=== PATIENT | male | born 1990 | race Caucasian/White ===

== ENCOUNTER 2024-06-18 14:24 | Emergency (ER) | payer MEDICARE, SELFPAY ==
--- NOTE | ~2024-06-18 | CT_ITS ---
CLINICAL HISTORY: head injury CT Head Without Contrast: Comparison: None Findings: Cortical sulci are symmetric Basal ganglia are unremarkable No shift in midline structures No intraparenchymal bleeding or abnormal extra axial blood fluid collections Normal pituitary size Clear paranasal sinuses Unremarkable orbital structures No depressed fractures Impression: Unremarkable CT of the head, no signs of acute trauma This document has been electronically signed by: Jose Aburto MD on 06/18/2024 15:58:50
[2024-06-18 14:30] VITALS: BP 157/87; PULSE 88; O2SAT 98
[2024-06-18 14:32] VITALS: BP 120/78; PULSE 89; RESP 16; TEMP 36.4; O2SAT 98; BMI 40.3
[2024-06-18] MEDS: Acetaminophen 325 MG TABLET 975 MG PO (14:49)
[2024-06-18] MEDS: Nicotine Polacrilex 2 MG GUM BUCCAL (15:09)
--- NOTE | 2024-06-18 15:10 | PC.NURSE ---
patient coming from [facility] for episode of agitation and hitting head against wall. ct scan completed, medicated per the MAR. patient requesting to go outside and smoke a cigarette, offered nicorette gum instead to which patient agrees to take. patient observer at bedside for patient safety.
--- NOTE | 2024-06-18 15:25 | ED_ITS ---
HPI - General Adult General Chief complaint: Head Injury Stated complaint: from [facility], is thirsty, hit head on wall Time Seen by Provider: 06/18/24 14:26 Source: patient, RN notes reviewed and old records reviewed Mode of arrival: EMS Limitations: no limitations History of Present Illness ED Provider: Kev HPI narrative: 33-year-old male presents for evaluation from [facility]. It is unclear why he is at [facility] as the patient reports he does not know. He reportedly got upset because they would not give me anything to drink and they would not give me my meds. he reports he smashed the back of his head against the wall because he was upset. He would not lose consciousness. He denies any neck pain but was placed in a C-collar. He does complain of a mild headache he has no other complaints or concerns at this time other than I am thirsty. Related Data Allergies Allergy/AdvReac Type Severity Reaction Status Date / Time acetaminophen [From Vicodin] Allergy Unknown Verified 06/18/24 14:37 hydrocodone [From Vicodin] Allergy Unknown Verified 06/18/24 14:37 Review of Systems Constitutional: Constitutional: Denies body ache(s), Denies chills, Denies fever(s) and Reports headache(s) Eyes: Eyes: Denies blurry vision, Denies exophthalmos and Denies floaters ENT: Denies vertigo, Denies dizziness and Reports headache(s) Cardiovascular: Cardiovascular: Denies chest pain and Denies chest pain at rest Respiratory: Respiratory: Denies cough Gastrointestinal: Gastrointestinal: Denies abdominal pain, Denies nausea and Denies vomiting Musculoskeletal: Musculoskeletal: Denies back pain, Denies arthralgias, Denies joint swelling and Denies limited range of motion Integumentary/Breasts: Skin/Breast: Denies rash Neurologic: Denies vertigo, Denies dizziness and Reports headache(s) PMFSH Social History Social History Advance Directives: No Advance Directives Information Provided: No Do you have a plan to hurt others: No Plan Physical Exam ED Vital Signs: Vital Signs - 24 hr 06/18/24 14:32 Temperature 97.6 F Pulse Rate 89 Respiratory Rate 16 Blood Pressure 120/78 Pulse Oximetry 98 Oxygen Delivery Method Room Air BMI result Body Mass Index 40.3 Const General: healthy appearing, comfortable, no acute distress, alert and awake Nutritional Appearance: well nourished [facility] Throat: Yes posterior oropharynx normal Eyes Eyelids: Yes eyelids normal Conjunctivae: conjunctivae normal Sclerae: sclerae normal Corneas: corneas normal Pupils: Equal, round and reactive pupils present EOM: EOMs intact bilaterally Neck Neck: Yes full ROM Resp Effort & Inspection: normal respiratory effort, able to speak in complete sentences and not labored Cardio Rate: regular rate Rhythm: regular rhythm GI Inspection: No distended Palpation (GI): Soft to palpation, not firm, nontender, no guarding and not rigid Back/Spine/Pelvis Cervical Spine: collar present and No Cervical spine tenderness Skin General skin exam: elasticity normal Neuro Cranial nerves: Yes CN's II-XII intact bilaterally, Yes Equal, round and reactive pupils present and Yes Bilaterally intact EOM present Cognition (Neuro): normal cognition Extrem Other: Moving all extremities well without any obvious deformities Medications Administered Generic Name Dose Route Start Last Admin Trade Name Freq PRN Reason Stop Dose Admin Nicotine Polacrilex 2 mg 06/18/24 14:54 06/18/24 15:09 Nicotine Polacrilex 2 Mg Gum BUCCAL 2 mg Q1H PRN Administration Nicotine Cravings Discontinued Medications Generic Name Dose Route Start Last Admin Trade Name Freq PRN Reason Stop Dose Admin Acetaminophen 975 mg 06/18/24 14:38 06/18/24 14:49 Acetaminophen 325 Mg Tablet PO 06/18/24 14:39 975 mg ONCE ONE Administration Medical Decision Making Medical Decision Making [facility] Narrative: 33-year-old male presenting for evaluation of a head injury. He is presenting from [facility] after striking the back of his head against a wall intentionally because he was upset. He has a bizarre affect but no focal neurologic deficits. Cervical spine was cleared with nexus criteria. I ordered a CT scan of the brain due to the patient's bizarre affect, however this could be his baseline. He was given Tylenol for his headache. he does have mild tenderness to the thoracic paraspinous region. No step-offs or deformities. Differential Diagnosis Differential Diagnoses: The differential diagnosis associated with the presentation includes Discharge Plan Discharge Clinical Impression: Closed head injury Patient Disposition: Xfer [facility] Transfer Details: [facility] Instructions: Head Injury (ED) Additional Instructions: Your CT scan did not show any significant injury. Use Tylenol as needed for pain follow-up with your primary doctor, return for new or worsening symptoms Print Language: Chinese
--- OUTSIDE RECORDS SUMMARY | 2024-06-18 15:31 | XMS_ITS | Clinical Summary ---
Author Organization [facility] Address [address] [place] [address] Care Team Providers Care Trades Helper Name Role Phone Damon Russo MD Primary Care Provider [phone] Immunizations Name Administration Dates Next Due DT (pediatric) 06/18/1994 DTaP 06/18/1994,07/21/1993,04/15/1993 ,02/11/1993 HIB (PRP-T) 04/09/1994,07/21/1993,02/11/1993 Hep B (pedi) 02/04/1994,01/24/1993,1992 IPV 06/18/1994,07/21/1993,04/15/1993 ,02/11/1993 MMR 04/09/1994 Social History Tobacco Use Types Packs/Day Years Used Date Smoking Tobacco: Never Assessed Sex and Gender Information Value Date Recorded Sex Assigned at Not on file Legal Sex Male 1:37 AM EDT Gender Identity Not on file Sexual Orientation Not on file Plan of Treatment Health Maintenance Due Date Last Done Comments Hepatitis C Screening 1992 DTaP/Tdap/Td (5 - Tdap) 12/21/2003 06/18/18 95, 07/21/1993, 04/15/1993, Additional history exists COVID-19 Vaccine (2023- season) 2023 Influenza (#1) 2023 Zoster (Shingrix) (1 of 2) 2042 Hep B Completed 02/04/1994, 01/08, 1992 Hib Completed 04/09/1994, 07/09, 02/11/1993 HPV Vaccine Aged Out No longer eligi ble based on patient's age to complete this topic Hep A Aged Out No longer eligi ble based on patient's age to complete this topic Meningococcal ACWY Aged Out No longer eligible based on patient's age to complete this topic Pneumococcal Aged Out No longer eligi ble based on patient's age to complete this topic Care Teams Trades Helper Relationship Specialty Start Date End Date Damon Russo MD [address] [place] [address] PCP - General 05/06/05
--- OUTSIDE RECORDS SUMMARY | 2024-06-18 15:31 | XMS_ITS | Data Portability ---
Author Organization [facility] [place] [address] [place] [address] Care Team Providers Care Computer Operations Manager Name Role Phone CATERINA RIOS Primary Care Provider CATERINA RIOS Referring Provider [phone] DAISY TALLEY Primary Care Provider [phone] Assessment No assessment recorded. Plan of Treatment Reminders Order Date Submit Date Provider Last Modified By Organization Details Last Modified Time Details Appointments None recorded. Lab rapid flu (A+B) 2022 023 [id number] In-Office Order, Internal Use Only DO Not Attach Compendium DO Not Attach Compendium, Do Not Delete/merge, [id number] 16:32:56 SARS CoV 2 RNA (COVID-19 ), QL, circulation librarian-PCR, respirato ry specimen 2022 023 [facility], [address] [place], [address], 3 08:17:55 SARS CoV 2 RNA (COVID-19 ), QL, circulation librarian-PCR, respirato ry specimen 2021 022 [facility], [address] [place], [address], 2 09:08:44 rapid flu (A+B) 2019 020 lourdes Gonzalez [facility], [address] [place], [address], 0 18:18:01 Referral None recorded. Procedures None recorded. Surgeries None recorded. Imaging XR, chest, 2 view 2021 022 [facility] ([facility]), [address] [place], [address], 2 10:32:28 Medication Orders Zofran 4 mg tablet 2019 020 INTERFACE [facility], [address] [place] [address], [address], 0 18:24:10 sulfameth oxazole 800 mg-trimet hoprim 160 mg tablet 2019 020 INTERFACE [facility], [address] [place] [address], [address], 0 10:52:57 mupirocin 2 % topical ointment 2019 020 INTERFACE [facility], [address] [place] [address], [address], 0 10:52:59 Patient TargetsNo targets recorded. Patient Instructions Encounter Date Encounter Id Patient Instructions Last Modified By Organization Details Last Modified Time 04/07/2019 [id number] sore throat: care instructions lourdes Not available 04/07/2019 18:18:01 Reason for Referral None Reported. Results Created Date Observation Date Name Description Value Unit Range Abnormal Flag Note LastModifiedBy Organization Detail LastModifiedTime 04/07/19 20 04/07/2019 rapid flu (A+B) Flu Type A negati ve Not Available [address] [place], [address], 04/07/2019 17:42:42 04/07/19 20 04/07/2019 rapid flu (A+B) Flu Type B negati ve Not Available [address] [place], [address], 04/07/2019 17:42:42 04/07/19 20 04/07/2019 rapid flu (A+B) Internal Control Valid Not Available Lisa [facility] [address] [place], [address], 04/07/2019 17:42:42 04/07/19 20 04/07/2019 rapid flu (A+B) Lot # [id number] Not Available [address] [place], [address], 04/07/2019 17:42:42 04/07/19 20 04/07/2019 rapid flu (A+B) Exp. Date 2021 Not Available [facility] [address] [place], [address], 04/07/2019 17:42:42 01/09/20 22 01/09/2022 SARS- COV-2 (NAAT ) sars-cov-2 NOT DETECT ED not detect . The Aptim a SARS- CoV-2 assay is a nucle ic acid ampli ficat ion in vitro diagn ostic test inten ded for the quali tativ e detec tion of RNA from SARS- CoV-2 using Trans cript ion Media italia Ampli ficat ion (TMA) isola italia and purif ied from nasop haryn geal (ACCOUNTING OFFICE MANAGER), nasal , mid-t urbin ate, and oroph aryng eal (OP) swab speci mens obtai deandra from indiv idual s meeti ng COVID -19 clini meka and/o r epide miolo gical crite renetta. The Aptim a TMA metho d is equiv alent in sensi tivit y and speci ficit y to metho ds utili zing PCR and RT-PC R. Resul ts are for the ident ifica tion of SARS- CoV-2 RNA which is gener ally detec table in upper respi rator y sampl es durin g the acute phase of infec tion. Posit kasia resul ts are indic ative of the prese nce of SARS- CoV-2 RNA; clini meka corre latio n with patie nt histo ry and other diagn ostic infor matio n is neces steven to deter mine patie nt infec tion statu s. Posit kasia resul ts do not rule out bacte rial infec tion or co-in fecti on with other virus es. Negat kasia resul ts do not precl ude SARS- CoV-2 infec tion and shoul d not be used as the sole basis for patie nt manag ement decis ions. Negat kasia resul ts must be combi deandra with clini meka obser vatio ns, patie nt histo ry, and epide miolo gical infor matio n. The Aptim a SARS- CoV-2 assay is only for use under the Food and Drug Admin istra tion' s Emerg ency Use Autho rizat ion (EUA) . Not Available [facility] [address] [place] [address], [id number] 01/09/2022 09:08:43 02/10/19 23 02/11/2022 SARS- COV-2 (NAAT ) sars-cov-2 NOT DETECT ED not detect . The Aptim a SARS- CoV-2 assay is a nucle ic acid ampli ficat ion in vitro diagn ostic test inten ded for the quali tativ e detec tion of RNA from SARS- CoV-2 using Trans cript ion Media it[place] Ampli ficat ion (TMA) isola italia and purif ied from nasop haryn geal (ACCOUNTING OFFICE MANAGER), nasal , mid-t urbin ate, and oroph aryng eal (OP) swab speci mens obtai deandra from indiv idual s meeti ng COVID -19 clini meka and/o r epide miolo gical crite renetta. The Aptim a TMA metho d is equiv alent in sensi tivit y and speci ficit y to metho ds utili zing PCR and RT-PC R. Resul ts are for the ident ifica tion of SARS- CoV-2 RNA which is gener ally detec table in upper respi rator y sampl es durin g the acute phase of infec tion. Posit kasia resul ts are indic ative of the prese nce of SARS- CoV-2 RNA; clini meka corre latio n with patie nt histo ry and other diagn ostic infor matio n is neces steven to deter mine patie nt infec tion statu s. Posit kasai resul ts do not rule out bacte rial infec tion or co-in fecti on with other virus es. Negat kasia resul ts do not precl ude SARS- CoV-2 infec tion and shoul d not be used as the sole basis for patie nt manag ement decis ions. Negat kasia resul ts must be combi deandra with clini meka obser vatio ns, patie nt histo ry, and epide miolo gical infor matio n. The Aptim a SARS- CoV-2 assay is only for use under the Food and Drug Admin istra tion' s Emerg ency Use Autho rizat ion (EUA) . Not Available [facility] [address] [place], [address] 02/11/2022 08:17:55 02/10/19 23 02/10/2022 rapid flu (A+B) Flu Type A negati ve Not Available In-Office Order Internal Use Only DO Not Attach Compendium DO Not Attach Compendium, Do Not Delete/merge, [id number] 02/10/2022 16:16:21 02/10/19 23 02/10/2022 rapid flu (A+B) Flu Type B negati ve Not Available In-Office Order Internal Use Only DO Not Attach Compendium DO Not Attach Compendium, Do Not Delete/merge, [id number] 02/10/2022 16:16:21 01/09/20 22 01/08/2022 XR, chest , 2 view [facility] [address] [place] [address] XRay Report Signed Perico t: Refugio Coles MR#: [id number] : 1990 Acct:H [id number] Age/Se x: 31 / M ADM Date: Loc: [facility] RA Attend ing Dr: Emily calixto PA-C Orderi ng Physic elham: Emily calixto Date of Servic e: Proced ure(s) : XR chest 2V Access ion Number (s): [id number] cc: Skyler Ibarra EXAM: XR chest 2V CLINIC AL INDICA TION: COUGH ADDITI ONAL PERTIN ENT CLINIC AL INFORM ATION FINDIN GS: CARLOS and naya andre compar tiffanie with: 010 Lung volume s: normal Lungs are clear. The heart, medias tinum, and bony struct ures appear unrema rkable . The visual ized bowel gas patter n below the diaphr agm is unrema rkable . Electr onical ly Signed in Henry cribe By Bhumika Balderas MD, MD 031 XR/XR chest 2V IMPRES KIAN: No acute findin gs. Dictat ed By: Bhumika Balderas Signed By: 1027 DD/DT: 900 TD/TT: 900 Transc riptio nist: [facility] [email or web address] [facility] [address] [place] [address], [id number], 01/08/2022 13:00:30 Result Notes None recorded. Problems Name Problem SNOMED Code Status Onset Date Resolution Date Notes Provider Name and Address Organization Details Recorded Time Glaucoma 99000951 Active Lavon suh [facility] 6 09:33:33 Injury of ankle 414163855 Active HAMMAD Chen [facility] 6 09:57:04 Problem Notes None recorded. Procedures Surgical History None recorded. Imaging Results Imaging Date Name Status LastModified by Organiz ation Details LastModified Time 01/08/2022 XR, chest, 2 view completed [email or web address] [facility] [address] [place] [address], [address], 01/08/2022 13:00:30 Procedure Notes None recorded. Medical Equipment None Reported. Allergies No known drug allergies Medications Name Sig Start Date Stop Date Status Note LastModified by Organization Details LastModified Time gabapentin 600 mg tablet active Not Available Not Available No t Available methylphenidat e 10 mg tablet active Not Available Not Availab le Not Available risperidone 4 mg tablet active Not Available Not Available No t Available methylphenidat e 20 mg tablet active Not Available Not Availab le Not Available ondansetron HCl 4 mg tablet Take 2 tablets twice a day by oral route for 3 days. active Not Available Not Available No t Available gabapentin 400 mg capsule active Not Available Not Available N ot Available olanzapine 5 mg tablet active Not Available Not Available No t Available clonazepam 1 mg tablet Take 1 tablet 3 times a day by oral route. active Not Available Not Available No t Available olanzapine 10 mg tablet active Not Available Not Available No t Available divalproex 500 mg tablet,delayed release active Not Available Not Available Not Available sulfamethoxazo le 800 mg-trimethopri m 160 mg tablet Take 1 tablet every 12 hours by oral route for 7 days. active Not Available Not Available No t Available risperidone 3 mg tablet active Not Available Not Available No t Available bupropion HCl SR 100 mg tablet,12 hr sustained-rele ase active Not Available Not Available Not Available risperidone 2 mg tablet active Not Available Not Available No t Available dextroamphetam ine-amphetamin e ER 20 mg 24hr capsule,extend release active Not Available Not Available Not Available trazodone 100 mg tablet active Not Available Not Available No t Available trazodone 150 mg tablet active Not Available Not Available No t Available haloperidol 10 mg tablet active Not Available Not Available No t Available benztropine 1 mg tablet active Not Available Not Available No t Available diclofenac sodium 75 mg tablet,delayed release active Not Available Not Available Not Available mupirocin 2 % topical ointment APPLY A SMALL AMOUNT TO THE AFFECTED AREA BY TOPICAL ROUTE 3 TIMES PER DAY active Not Available Not Available No t Available lorazepam 1 mg tablet active Not Available Not Available Not Available ibuprofen 600 mg tablet active Not Available Not Available No t Available dextroamphetam ine-amphetamin e ER 30 mg 24hr capsule,extend release active Not Available Not Available Not Available fluoxetine 20 mg capsule active Not Available Not Available N ot Available risperidone 1 mg tablet active Not Available Not Available No t Available Boostrix Tdap 2.5 Lf unit-8 mcg-5 Lf/0.5 mL intramuscular syringe active Not Available Not Available Not Available Cogentin active Not Available Not Avai lable Not Available Zyprexa active Not Available Not Avail able Not Available Depakote active Not Available Not Avai lable Not Available ibuprofen active Not Available Not Veronica ilable Not Available Haldol active Not Available Not Availa ble Not Available Nicorette active Not Available Not Veronica ilable Not Available trazodone active Not Available Not Veronica ilable Not Available Xanax active Not Available Not Availa ble Not Available Neurontin active Not Available Not Veronica ilable Not Available Wellbutrin active Not Available Not Av ailable Not Available Adderall active Not Available Not Avai lable Not Available Vitals Date Recorded Body height Body mass index (BMI) Body weight Provider Name and Address Organization Details Last Updated DateTime 03/13/2015 165.1 cm 43.3 kg/m2 570353.4266 g Lavon Nghia [facility] 03/13/2015 09:33:33 Date Recorded Body temperature Heart rate Oxygen saturation Oxygen saturation in Arterial blood by Pulse oximetry Systolic blood pressure Diastolic blood pressure Provider Name and Address Organization Details Last Updated DateTime 0 97.8 [degF] 92 /min 97 % 97 % 128 mm[Hg] 76 mm[Hg] Vanna Boles [facility] 0 10:15:12 Date Recorded Body temperature Provider Name a mi Address Organization Details Last Updated DateTime 04/07/2019 97.6 [degF] Yoanna Kelly NP [address] [place], [address], [facility] 04/07/2019 18:20:59 Date Recorded Heart rate Oxygen saturation Oxygen saturation in Arterial blood by Pulse oximetry Systolic blood pressure Diastolic blood pressure Provider Name and Address Organization Details Last Updated DateTime 0 78 /min 96 % 96 % 130 mm[Hg] 70 mm[Hg] Rachel Chavis [facility] 0 17:46:41 Date Recorded Heart rate Oxygen saturation Oxygen saturation in Arterial blood by Pulse oximetry Body temperature Systolic blood pressure Diastolic blood pressure Provider Name and Address Organization Details Last Updated DateTime 2 107 /min 97 % 97 % 97.2 [degF] 120 mm[Hg] 82 mm[Hg] Halley Stokes MA [facility] 2 08:37:43 Date Recorded Heart rate Body temperature Systolic blood pressure Diastolic blood pressure Provider Name and Address Organization Details Last Updated DateTime 02/10/2022 95 /min 96.8 [degF] 118 mm[Hg] 80 mm[Hg] Halley Stokes MA [facility] 02/10/2022 15:46:45 Date Recorded Oxygen saturation Oxygen saturation in Arterial blood by Pulse oximetry Provider Name and Address Organization Details Last Updated DateTime 02/10/2022 97 % 97 % CARLOS OLIVA [address] [facility], [place], [address], [facility] 02/10/2022 16:07:52 Social History Question Answer Notes LastModified by Organizat ion Details LastModified Time Tobacco Smoking Status Current Every Day Smoker Lavon Agrawal angeli, [facility] 02/20/2015 13:32:45 Living Situation Other Information not available 02/20/2015 Alcohol Use Never Drink Alcohol Information not available 02/20/2015 Illicit Drugs No Information not available 02/20/2015 Marital Status Single Informatio n not available 02/20/2015 How Many Years Have You Smoked Tobacco? 4 Information not available 02/20/2015 Sex: Unknown Functional Status None recorded. Mental Status None recorded. Family History Nothing Reported. Medical History No medical history recorded. Past Encounters Encounter ID Performer Location Encounter Start Date Encounter Closed Date Diagnosis/Indication Diagnosis SNOMED-CT Code Diagnosis ICD10 Code Diagnosis Note [id number] Jimbo Abel MD [facility] [address], [address] [place] [address] 02/20/2015 13:05:33 02/20/2015 14:01:17 Injury of ankle 217815796 S99.911A 24 yo M, with R ankle pain/swell ing/bruisi ng s/p inversion injury while playing volleyball 02/18/15. He presented to [facility] ED for xrays: Minimal spurring. No fracture seen on ankle views and negative R foot films. He was placed in posterior splint and instructed to follow up. Today he continues with pain on both lateral and medial malleolus and across anterior aspect of ankle. He denies any significan t numbness/t ingling, has been icing and elevating. States he previously fracture ankle at age 14 and treated nonoperati ve in cast. He has not had any issues since recent injury. AC boot given WBAT, Motrin Rx given, follow up in 2 weeks or sooner with any questions/ concerns. [id number] Jimbo Abel MD [facility]oped[facility] [address] [facility], [address] [place] [address] 03/13/2015 09:27:57 03/13/2015 09:53:09 Injury of ankle 866824244 S99.911A 24 yo M, with R ankle pain/swell ing/bruisi ng s/p inversion injury while playing volleyball 02/18/15. He presented to [facility] ED for xrays: Minimal spurring. No fracture seen on ankle views and negative R foot films. He was placed in posterior splint and instructed to follow up. . States he previously fracture ankle at age 14 and treated nonoperati ve in cast. He has not had any issues since recent injury. AC boot given WBAT, Motrin Rx given, follow up in 2 weeks or sooner with any questions/ concerns. Pt follow up today with significan t improvemen t in symptoms, denies any pain and able to WB without any issues. I recommend he continue with activity as tolerated and call office with any issues or concerns. [id number] Riaz Chou PA-C [facility] [address] [address] 03/22/2019 09:45:10 03/22/2019 11:02:24 Laceration of index finger 491775607 S61.211A Advised time since injury contraindi cates closure though apparently closed with good approximat ion prior to arrival. Updating as below and treating prophylact ically for dirty wound, Bactrim for hx of MRSA infxn. Some nail involvemen t though may continue growing normally; f/u with PCP if any indication of ingrowing and may require partial nail removal. Counseled on wound care and signs/symp toms of infxn for f/u. [id number] Yoanna Kelly NP [facility] [address] [address] 04/07/2019 17:35:12 04/07/2019 18:24:18 Acute pharyngitis 443855255 J02.9 Viral syndrome 402542505 B34.9 Discussed symptoms likely viral in etiology, will send in zofran to use for n/v. Exam not concerning for strep. Pt does have prn order for ibuprofen and rec use of this for headache, but discussed taking after eating to avoid stomach upset. Rec f/u with PCP in next 3 days if symptoms not improved; discussed s/s that would warrant sooner re-eval. [id number] CARLOS GIVENS [facility] [address] [place] [address] 01/08/2022 08:17:58 01/08/2022 09:11:54 Cough 05809592 R05.9 Pt presents with 1-2 weeks of cough, congestion vitals stable, lungs CTA b/l, in nad, unremarkab le exam,Dif Dx: viral uri vs covid vs bronchitis vs less likely PNA vs less likely PE (low risk wells score, HR recheck consistent to 80-90, pain in back is over location that he fell one month ago, no hx of pe, not sob on exam and pain is intermitte nt)Screen for COVIDCXR: negative for acute findingsAd vised rest, hydration, ibuprofen/ tylenol prn along with warm salt water gargles, warm tea with honey, mucinex DMshould he develop worsening sob, back pain or dizziness to RTC or go to ER. pt in agreement with plan Warning signs of when to RTC discussed. [id number] CARLOS OLIVA [facility] [address] [place] [address] 02/10/2022 13:59:20 02/10/2022 16:18:43 Viral syndrome 604672607 B34.9 Symptoms appear viral in nature. No signs of bacterial infection at this time. Covid test sent, pt instructed to stay home pending results. Recommende d increased fluids and rest, tylenol or ibuprofen prn, OTC cough syrup prn, throat lozenges prn, tea with honey, salt water gargles. may take antihistam ine and flonase nasal spray daily. f/u with PCP if sxs persist/wo rsen. ED precaution s discussed. Health Concerns Section Related Observation LastModified by Organization Detai ls LastModified Time None Recorded Concern Status LastModified by Organization Details LastModified Time None Recorded Advance Directives Directive None Recorded Payers Insurance Date Sequence Insurance Name Policy Number Policy Dewitt Covered Member ID Dewitt Member ID Guarantor Name 03/19/2022 2 [place] [facility] Dwayne smith [id number] Dwayne MurphyStr oker 01/08/2022 1 [facility] NET PLAN (MEDICAID HMO) Preet smith [id number] Dwayne Figueroa-Str oker 01/08/2022 1 MEDICARE B-[place]: [facility] Preet smith [id number] Dwayne Figueroa-Str oker 02/10/2022 1 [place] [facility] Dwayne Figueroa Stroker [id number] Dwayne Figueroa-Str oker Notes Date Note Type Note Provider Name and Address Organization Details Recorded Time 6 text/html OrthopedicsReported bypatient.Location:Right ; Ankle Quality:Intermittent;Ach ing Severity:Mild-Moderate Pain Scale (0=no pain, 10=highest)Right side pain level 3/10 Onset/Timing:After an injury or accident, date (playing volleyball 02/18/15) Duration:3 weeks Context:Improved Aggravating Factors:Worse at Night;Walking;Climbing Stairs Alleviating factors:Better in the Morning; Medication Pain Medication used for this problem (Over the Counter):Ibuprofen Evaluations or Treatments for this problem:Other Physician ImagingX-rayNotes:24 yo M, with R ankle pain/swelling/bruising s/p inversion injury while playing volleyball 02/18/15. He presented to [facility] ED for xrays: Minimal spurring. No fracture seen on ankle views and negative R foot films. He was placed in posterior splint and instructed to follow up. . States he previously fracture ankle at age 14 and treated nonoperative in cast. He has not had any issues since recent injury. AC boot given WBAT, Motrin Rx given, follow up in 2 weeks or sooner with any questions/concerns. Pt follow up today with significant improvement in symptoms, denies any pain and able to WB without any issues. Jimbo Abel MD [facility], [place] - [facility] 04/01/2015 07:04:00 0 text/html 28/M presents with skilled nursing staff for finger cut. Reports: - last PM (16hrs ago) cut L index finger while slicing food - initial bleeding controlled with pressure - joined by Salomon, staff from [address] [place] [address] - had one prior MRSA skin infxn during high school football - PCP Caterina Rios ROS: finger cut, bleeding (now resolved), no extremity numbness/paresthesia Amarilis Hendricks MD [address] [place], [address], [facility] 03/24/2019 15:57:13 0 text/html Pt presents in [facility] today c/o vomiting, headache, sweaty, and sore throat. -AP started not feeling well last night, worst today c/o n/v, sore throat, headache, and sweats normal bowels, no abd pain pt states worst symptoms are headache and nausea no fevers pt resides in skilled nursing, no known flu or strep exposure Yoanna Kelly NP [address] [place], [address], [facility] 04/07/2019 19:49:23 2 text/html 31 year old male presents at [facility] for cough and congestion that has been going on for about 2-3 days. Covid test done--AMP Pt presents with 1-2 weeks days of cough, congestion, some tightness in his left back after fall-no fever/chills, no ear pain, mild sore throatcoughing up sputum, notes some sob, pain with breathing in deep along side he fell on but that has been going on for a month. He is a smoker of cigarettes/marijuana.-no interventions-his mom passed this am. he isn't sure if it was pna or not but wants to make sure he doesn't have pna.no hx of pna. Amarilis Hendricks MD [address] [place], [address], [facility] 01/09/2022 12:43:07 3 text/html 31 year old male presents at [facility] for cough, congestion, vomiting and sore throat that has been going on for a couple days. Pt needs a note for his school to go back--AMP pt reports 2-3 days of productive cough, congestion, sore throat, and fatigue. also reports some vomiting last week, none since. pt denies any fevers, SOB, wheezing, chest pain, ear pain, sinus pain. no known exposures. Amarilis Hendricks MD [address] [place] [address], [place], [address], [facility] 02/11/2022 07:56:37
--- NOTE | 2024-06-18 16:19 | PC.NURSE ---
resting quietly in room, awaiting transportation back to facility. ambulates independently with steady gait to bathroom and back. provided with sandwich and juice
[2024-06-18 17:36] VITALS: BP 120/78; PULSE 89; RESP 16; TEMP 36.4; O2SAT 98
== END 2024-06-18 17:36 ==
PROVIDERS: Emergency Provider Emergency Medicine Emergency Medical Services
DX: S09.90XA Unspecified injury of head, initial encounter (principal); R51.9 Headache, unspecified; X58.XXXA Exposure to other specified factors, initial encounter; Y93.9 Activity, unspecified; Y92.9 Unspecified place or not applicable; Y99.8 Other external cause status
CPT/HCPCS: 70450; 99284

== ENCOUNTER → 2024-06-18 14:52 | Outpatient (BNV) | payer MEDICARE, SELFPAY | PROVIDERS: Emergency Provider Emergency Medicine Emergency Medical Services; Visit Provider Radiology Diagnostic Radiology | DX: S09.90XA Unspecified injury of head, initial encounter (principal) | CPT/HCPCS: 70450 ==